=== PATIENT | female | born 2000 | race Caucasian/White ===

== ENCOUNTER 2021-08-22 20:42 | Inpatient (IN) ==
[2021-08-22] MEDS ORDERED: ACETAMINOPHEN 1,000 MG/100 ML VIAL IV STA (21:41)
[2021-08-22] MEDS ORDERED: ONDANSETRON INJ 2 MG/ML 2 ML VIAL IV STA ×2 (21:41→23:20)
[2021-08-22] MEDS ORDERED: SODIUM CHLORIDE 0.9% 1000ML 1,000 ML IV STA (21:41)
[2021-08-22 21:54] LABS: Appearance Urine Turbid (Clear); Bacteria Urine Automated 4+ (Negative); Bilirubin Urine Negative (Negative); Blood Urine Negative (Negative); Color Urine Yellow; Epithelial Cell Urine Auto >30 /lpf (0-5); Glucose Urine UA Negative (Negative); Ketones Urine 1+ (Negative); Leukocyte Esterase Urine 2+ (Negative); Nitrite Urine Positive (Negative); Protein Urine 1+ (Negative); RBC Urine Automated 0-4 /hpf (0-4); Specific Gravity Urine 1.023 (1.000-1.030); Urobilinogen Urine Negative (Negative); WBC Urine Automated >30 /hpf (0-5)
[2021-08-22 22:07] LABS: Pregnancy Test, Serum Negative (Negative)
[2021-08-22 22:15] LABS: Albumin Globulin Ratio 1.5 (0.9-2); Albumin Level 4.3 gm/dl (3.4-5.0); BUN Creatinine Ratio 13.2 (10-20); Bilirubin,Total 1.8 mg/dl (0.2-1.0); Calcium 9.2 mg/dl (8.5-10.1); Est GFR (Non-African American) 112.1 ml/min; Globulin 2.9 gm/dl (2.5-4.0); Potassium 3.4 mmol/L (3.5-5.1); Total Protein 7.2 gm/dl (6.0-8.3)
[2021-08-22] MEDS ORDERED: PIPERACILLIN/TAZOBACTAM 4.5 GM/120 ML BAG IV ONE (22:22)
--- NOTE | 2021-08-22 22:41 | Emergency Department Note ---
History of Present Illness General Chief complaint: Illness Stated complaint: 103 FEVER, VOMITING Time Seen by Provider: 08/22/21 21:34 History of Present Illness Maximum Pain Intensity: 7 This 21-year-old presents to the ER complaining of lower abdominal pain with urinary symptoms and fever Location: Lower abdomen Quality: Painful Severity: Moderate Duration: Past 2 days Timing: Started 2 days ago Context: Patient was concerned and came in Modifying factors: better with Tylenol; worse with activity Patient had a negative home COVID test. Patient denies chest pain, dyspnea, cough, congestion, diarrhea, flulike illness. Patient states she took a dose of Tylenol earlier today. No other medications. Home Medications Medication Instructions Recorded Confirmed Type No Known Home Medications 08/22/21 08/22/21 History Allergies Allergy/AdvReac Type Severity Reaction Status Date / Time No Known Allergies Allergy Unverified 08/22/21 21:49 Past Med/Surg History Medical History No acute medical problems Surgical History No pertinent past surgical history Social History Smoking Status: Never smoker Preferred Language: Gibralt[place] Feels Safe at Home: Yes Review of Systems A total of 10 systems reviewed and were otherwise negative Physical Exam Vital Signs Vital Signs - 24 hr 08/22/21 20:50 08/22/21 21:41 08/22/21 22:42 Temperature 36.6 C 36.4 C L Temperature Source Oral Oral Pulse Rate 91 H Pulse Rate [Apical] 61 Respiratory Rate 18 17 Blood Pressure 115/71 Blood Pressure [Right Arm] 96/64 L Blood Pressure Mean 85 Blood Pressure Mean [Right Arm] 74 Blood Pressure Position Sitting Pulse Oximetry 98 97 98 Oxygen Delivery Method Room Air Room Air Room Air Sepsis Recent Fever Within 48 Hours Yes Sepsis New/Unexplained Change in Mental Status N/A Sepsis Action Taken by Nursing No Action Required 08/22/21 23:57 08/23/21 01:00 Temperature Temperature Source Pulse Rate Pulse Rate [Apical] 62 73 Respiratory Rate 16 22 Blood Pressure Blood Pressure [Right Arm] 107/74 104/76 Blood Pressure Mean Blood Pressure Mean [Right Arm] 85 85 Blood Pressure Position Pulse Oximetry 97 98 Oxygen Delivery Method Room Air Room Air Sepsis Recent Fever Within 48 Hours Sepsis New/Unexplained Change in Mental Status Sepsis Action Taken by Nursing VITALS: Vitals are noted on the nurse's note and reviewed by myself. Vital signs reviewed. GENERAL: Pleasant female, in no acute distress, nondiaphoretic, well-developed well-nourished. SKIN: The skin was without rashes, erythema, edema, or bruising. There is no tenting of the skin. Capillary reflex less than 2 seconds. HEAD: Normocephalic atraumatic. EARS: External auditory canals clear, tympanic membranes pearly santoro without erythema or effusion bilaterally. EYES: Pupils equal round and reactive to light and accommodation. Conjunctivae without injection, sclerae without icterus. Extraocular movements intact. NOSE: Patent, turbinates without inflammation or discharge. MOUTH: Mucous membranes moist. Pharynx without erythema or exudate. Uvula midline. Airway patent. Tongue does not deviate. NECK: Supple without nuchal rigidity. No lymphadenopathy. No thyromegaly. Cervical spine is nontender. No JVD. HEART: Regular rate and rhythm LUNGS: Clear to auscultation bilaterally without wheezes, rales or rhonchi. No retractions or accessory muscle use. ABDOMEN: Positive bowel sounds x 4. Normal tympanic percussion. Soft, tender lower abdomen, without masses or organomegaly. Chaney sign negative. No guarding or rebound tenderness. No CVA tenderness MUSCULOSKELETAL: No muscle atrophy, erythema, or edema noted. NEURO: Patient was alert and oriented to person place and time. Normal s ensation to light and sharp touch. No focal neurological deficits. Course Administered Medications Sodium Chloride (Nss 1000ml) 1,000 mls @ 80 mls/hr IV .[id number] FOR[facility]LY [facility], 1928–1983 Stop: 09/22/21 00:14 Last Admin: 08/23/21 01:10 Dose: 80 mls/hr Documented by: [id number] Discontinued Medications Fentanyl Citrate (Fentanyl Citrate 100 Mcg/2 Ml Vial) 50 mcg IV NOW STA Stop: 08/22/21 23:21 Last Admin: 08/22/21 23:28 Dose: 50 mcg Documented by: [id number] Sodium Chloride (Nss 1000ml) 1,000 mls @ 999 mls/hr IV .[id number] STA Stop: 08/22/21 22:41 Last Infusion: 08/22/21 23:35 Dose: 0 mls/hr Documented by: [id number] Admin: 08/22/21 22:33 Dose: 999 mls/hr Documented by: [id number] Acetaminophen (Ofirmev) 1,000 mg in 100 mls @ 400 mls/hr IV NOW STA Stop: 08/22/21 21:55 Last Infusion: 08/22/21 22:49 Dose: 0 mls/hr Documented by: [id number] Admin: 08/22/21 22:33 Dose: 400 mls/hr Documented by: [id number] Piperacillin Sod/Tazobactam Sod (Zosyn) 4.5 gm in 120 mls @ 240 mls/hr IV NOW ONE Stop: 08/22/21 22:51 Last Infusion: 08/23/21 00:01 Dose: 0 mls/hr Documented by: [id number] Admin: 08/22/21 23:28 Dose: 240 mls/hr Documented by: [id number] Ioversol (Optiray 320 100ml) 93 ml IV ONCE ONE Stop: 08/22/21 23:11 Last Admin: 08/22/21 23:10 Dose: 93 ml Documented by: [id number] Ondansetron HCl (Ondansetron Inj 2 Mg/Ml 2 Ml Vial) 4 mg IV NOW STA Stop: 08/22/21 21:42 Last Admin: 08/22/21 22:33 Dose: 4 mg Documented by: [id number] Ondansetron HCl (Ondansetron Inj 2 Mg/Ml 2 Ml Vial) 4 mg IV NOW STA Stop: 08/22/21 23:21 Last Admin: 08/22/21 23:28 Dose: 4 mg Documented by: [id number] Medical Decision Making Medical Records Attestation: I reviewed the patient's medical records. Home Medications Current Medication List: was personally reviewed by me Laboratory Data Attestation: I reviewed the patient's lab results. Result diagrams: 08/22/21 21:40 08/22/21 21:40 Lab Results 08/22/21 08/22/21 08/22/21 Range/Units 21:40 21:40 21:40 WBC 23.40 H (4.8-10.8) K/uL RBC 4.30 (4.2-5.4) M/uL Hgb 13.1 (12.0-16.0) g/dL Hct 38.2 (37-47) % MCV 88.8 (80-100) fL MCH 30.5 (25-34) pg MCHC 34.3 (32-36) g/dL RDW Std Deviation 38.7 (36.4-46.3) fL RDW Coeff of Nereyda 12.1 (11.5-14.5) % Plt Count 185 (130-400) K/uL MPV 12.2 H (7.4-10.4) fL Immature Gran % (Auto) 0.3 % Neut % (Auto) 93.2 % Lymph % (Auto) 2.1 % [place] % (Auto) 4.3 % Eos % (Auto) 0.0 % Baso % (Auto) 0.1 % Neut # (Auto) 21.80 H (1.4-6.5) K/uL Lymph # (Auto) 0.50 L (1.2-3.4) K/uL [place] # (Auto) 1.00 H (0.11-0.59) K/uL Eos # (Auto) 0.00 (0-0.5) K/uL Baso # (Auto) 0.02 (0-0.2) K/uL Immature Gran # (Auto) 0.08 H (0.00-0.02) K/uL Sodium 134 L (136-145) mmol/L Potassium 3.4 L (3.5-5.1) mmol/L Chloride 100 (98-107) mmol/L Carbon Dioxide 24 (21-32) mmol/L Anion Gap 10 (3-11) BUN 10 (6-23) mg/dl Creatinine 0.76 (0.6-1.2) mg/dl Est Cr Clr Drug Dosing 108.0 ml/min Est GFR ( Amer) 130.0 ml/min Est GFR (Non-Af Amer) 112.1 ml/min BUN/Creatinine Ratio 13.2 (10-20) Glucose 135 H (70-99(Fasting)) mg/dl Lactate (0.4-2.0) mmol/L Calcium 9.2 (8.5-10.1) mg/dl Total Bilirubin 1.8 H (0.2-1.0) mg/dl AST 652 H (13-39) U/L ALT 457 H (7-52) U/L Alkaline Phosphatase 63 (34-104) U/L Total Protein 7.2 (6.0-8.3) gm/dl Albumin 4.3 (3.4-5.0) gm/dl Globulin 2.9 (2.5-4.0) gm/dl Albumin/Globulin Ratio 1.5 (0.9-2) HCG, Qual Negative (Negative) Urine Color Urine Appearance (Clear) Urine pH (4.5-7.5) Ur Specific [place] (1.000-1.030) Urine Protein (Negative) Urine Glucose (UA) (Negative) Urine Ketones (Negative) Urine Blood (Negative) Urine Nitrite (Negative) Urine Bilirubin (Negative) Urine Urobilinogen (Negative) Ur Leukocyte Esterase (Negative) Urine WBC (Auto) (0-5) /hpf Urine RBC (Auto) (0-4) /hpf U Hyaline Cast (Auto) (0-5) /lpf U Epithel Cells (Auto) (0-5) /lpf Urine Bacteria (Auto) (Negative) Acetaminophen (10-30) ug/ml SARS-CoV-2 (PCR) SARS-CoV-2, RNA, NAAT (NEGATIVE) 08/22/21 08/22/21 08/22/21 Range/Units 21:40 22:43 22:43 WBC (4.8-10.8) K/uL RBC (4.2-5.4) M/uL Hgb (12.0-16.0) g/dL Hct (37-47) % MCV (80-100) fL MCH (25-34) pg MCHC (32-36) g/dL RDW Std Deviation (36.4-46.3) fL RDW Coeff of Nereyda (11.5-14.5) % Plt Count (130-400) K/uL MPV (7.4-10.4) fL Immature Gran % (Auto) % Neut % (Auto) % Lymph % (Auto) % [place] % (Auto) % Eos % (Auto) % Baso % (Auto) % Neut # (Auto) (1.4-6.5) K/uL Lymph # (Auto) (1.2-3.4) K/uL [place] # (Auto) (0.11-0.59) K/uL Eos # (Auto) (0-0.5) K/uL Baso # (Auto) (0-0.2) K/uL Immature Gran # (Auto) (0.00-0.02) K/uL Sodium (136-145) mmol/L Potassium (3.5-5.1) mmol/L Chloride (98-107) mmol/L Carbon Dioxide (21-32) mmol/L Anion Gap (3-11) BUN (6-23) mg/dl Creatinine (0.6-1.2) mg/dl Est Cr Clr Drug Dosing ml/min Est GFR ( Amer) ml/min Est GFR (Non-Af Amer) ml/min BUN/Creatinine Ratio (10-20) Glucose (70-99(Fasting)) mg/dl Lactate 1.7 (0.4-2.0) mmol/L Calcium (8.5-10.1) mg/dl Total Bilirubin (0.2-1.0) mg/dl AST (13-39) U/L ALT (7-52) U/L Alkaline Phosphatase (34-104) U/L Total Protein (6.0-8.3) gm/dl Albumin (3.4-5.0) gm/dl Globulin (2.5-4.0) gm/dl Albumin/Globulin Ratio (0.9-2) HCG, Qual (Negative) Urine Color Yellow Urine Appearance Turbid A (Clear) Urine pH 5.0 (4.5-7.5) Ur Specific [place] 1.023 (1.000-1.030) Urine Protein 1+ H (Negative) Urine Glucose (UA) Negative (Negative) Urine Ketones 1+ H (Negative) Urine Blood Negative (Negative) Urine Nitrite Positive A (Negative) Urine Bilirubin Negative (Negative) Urine Urobilinogen Negative (Negative) Ur Leukocyte Esterase 2+ H (Negative) Urine WBC (Auto) >30 H (0-5) /hpf Urine RBC (Auto) 0-4 (0-4) /hpf U Hyaline Cast (Auto) 1-5 (0-5) /lpf U Epithel Cells (Auto) >30 H (0-5) /lpf Urine Bacteria (Auto) 4+ H (Negative) Acetaminophen (10-30) ug/ml SARS-CoV-2 (PCR) Cancelled SARS-CoV-2, RNA, NAAT (NEGATIVE) 08/22/21 08/23/21 Range/Units 22:43 01:10 WBC (4.8-10.8) K/uL RBC (4.2-5.4) M/uL Hgb (12.0-16.0) g/dL Hct (37-47) % MCV (80-100) fL MCH (25-34) pg MCHC (32-36) g/dL RDW Std Deviation (36.4-46.3) fL RDW Coeff of Nereyda (11.5-14.5) % Plt Count (130-400) K/uL MPV (7.4-10.4) fL Immature Gran % (Auto) % Neut % (Auto) % Lymph % (Auto) % [place] % (Auto) % Eos % (Auto) % Baso % (Auto) % Neut # (Auto) (1.4-6.5) K/uL Lymph # (Auto) (1.2-3.4) K/uL [place] # (Auto) (0.11-0.59) K/uL Eos # (Auto) (0-0.5) K/uL Baso # (Auto) (0-0.2) K/uL Immature Gran # (Auto) (0.00-0.02) K/uL Sodium (136-145) mmol/L Potassium (3.5-5.1) mmol/L Chloride (98-107) mmol/L Carbon Dioxide (21-32) mmol/L Anion Gap (3-11) BUN (6-23) mg/dl Creatinine (0.6-1.2) mg/dl Est Cr Clr Drug Dosing ml/min Est GFR ( Amer) ml/min Est GFR (Non-Af Amer) ml/min BUN/Creatinine Ratio (10-20) Glucose (70-99(Fasting)) mg/dl Lactate (0.4-2.0) mmol/L Calcium (8.5-10.1) mg/dl Total Bilirubin (0.2-1.0) mg/dl AST (13-39) U/L ALT (7-52) U/L Alkaline Phosphatase (34-104) U/L Total Protein (6.0-8.3) gm/dl Albumin (3.4-5.0) gm/dl Globulin (2.5-4.0) gm/dl Albumin/Globulin Ratio (0.9-2) HCG, Qual (Negative) Urine Color Urine Appearance (Clear) Urine pH (4.5-7.5) Ur Specific [place] (1.000-1.030) Urine Protein (Negative) Urine Glucose (UA) (Negative) Urine Ketones (Negative) Urine Blood (Negative) Urine Nitrite (Negative) Urine Bilirubin (Negative) Urine Urobilinogen (Negative) Ur Leukocyte Esterase (Negative) Urine WBC (Auto) (0-5) /hpf Urine RBC (Auto) (0-4) /hpf U Hyaline Cast (Auto) (0-5) /lpf U Epithel Cells (Auto) (0-5) /lpf Urine Bacteria (Auto) (Negative) Acetaminophen 41 H (10-30) ug/ml SARS-CoV-2 (PCR) SARS-CoV-2, RNA, NAAT NEGATIVE (NEGATIVE) Imaging Data Attestation: I personally reviewed and interpreted this imaging study as follows: MDM Narrative Prior records/ancillary studies reviewed. Triage Nursing notes reviewed. Additional history obtained from nursing. The patient's history was concerning for fever. Differential diagnosis: Etiologies such as viral syndrome, otitis, pharyngitis, pneumonia, influenza, meningitis, urinary tract infection, sepsis, bacteremia, as well as others were entertained. Physical examination: As above ER treatment provided: An order was placed for continuous cardiac monitoring. The monitor shows a rate of 60-1 50 with a sinus rhythm. IV fluids, Zosyn, NAC . On reassessment the patient felt better. Diagnostics interpreted by me: The labs revealed leukocytosis, elevated LFTs Urine concerning for infection and sent for culture. No prior urine culture for review Tylenol level sent with elevated LFTs and came back minimally elevated. NAC was initiated Imaging studies: Preliminary Findings Only See Final Report For Complete Findings CT ABDOMEN & PELVIS With Contrast: Impression: Left-sided pyelonephritis. No acute appendicitis. Cannot exclude mild right-sided colitis versus artifact. No prior exam for comparison. Clear lung bases. Normal heart. Mild periportal edema. Normal gallbladder. Normal common bile duct with no dilatation. Normal spleen and pancreas. Normal bilateral adrenal gland. Normal right kidney. Multiple areas of hypoenhancement to the left renal cortex with the hazy appearance consistent with left pyelonephritis. Normal aorta and retroperitoneum. Unremarkable stomach and small bowel. No signs of bowel obstruction. Mild thickening of the wall of the right: With mild enhancement, cannot exclude mild right-sided colitis. The appendix is normal. The uterus is retroflexed. There is mild free fluid in the cul-de-sac, nonspecific. Bony structures within normal limits. Radiologist: Su Yadav MD Consultation: A consultation was placed with the hospitalist . The case was discussed and diagnostics were reviewed. The patient was evaluated in the ER for further treatment. This appears to be consistent with pyelonephritis with elevated LFTs with concerns for possible accidental Tylenol overdose. Patient is given antibiotics and NAC. Patient did not inform me she took extra Tylenol. She did inform the admitting doctor that she has been taking Tylenol every 4 hours. She told me she took a dose earlier today. Patient will be admitted. She does admit to binge drinking on the weekends. No other drug use. By the evaluation outlined above emergent etiologies such as otitis, pharyngitis, pneumonia, meningitis, as well as others were deemed relatively unlikely. The pt informed about the findings as listed above. All questions were answered and pleased with the treatment. The chart was completed utilizing [employer] Speech voice recognition software. Grammatical errors, random word insertions, pronoun errors, and incomplete sentences are an occassional consequence of this system due to software limitations, ambient noise, and hardware issues. Any formal questions or concerns about the content, text, or information contained within the body of this dictation should be directly addressed to the physician funeral home assistant for clarification. Impression & Plan Pyelonephritis, Elevated LFTs Discharge Plan Visit Data Chief Complaint: Illness Stated Complaint: 103 FEVER, VOMITING ED Provider: Rasheed Agustin ED Midlevel Provider: Katherine Rowley Discharge Problem: Pyelonephritis, Elevated LFTs Patient Disposition: Admitted As Inpatient Condition: Fair Forms Stand Alone Forms: My [employer] Prescriptions Prescriptions: No Action No Known Home Medications RF: 0 Referrals Referrals: PCP,NO [Primary Care Provider] -
[2021-08-22 22:46] LABS: Hematocrit (blood only) 38.2 % (37-47); Hemoglobin 13.1 g/dL (12.0-16.0); Mean Corpuscular Hemoglobin 30.5 pg (25-34); Mean Corpuscular Hgb Conc 34.3 g/dL (32-36); Mean Corpuscular Volume 88.8 fL (80-100); Mean Platelet Volume 12.2 fL (7.4-10.4); Platelet Count 185 K/uL (130-400); RDW Coefficient of Variation 12.1 % (11.5-14.5); RDW Standard Deviation 38.7 fL (36.4-46.3)
[2021-08-22 23:00] LABS: Basophils # (auto) 0.02 K/uL (0-0.2); Basophils % (auto) 0.1 %; Immature Granulocytes # (auto) 0.08 K/uL (0.00-0.02); Immature Granulocytes % (auto) 0.3 %; Lymphocytes % (auto) 2.1 %; Monocytes % (auto) 4.3 %; Neutrophils % (auto) 93.2 %
[2021-08-22] MEDS ORDERED: OPTIRAY 320 100ml IV ONE (23:10)
[2021-08-22] MEDS ORDERED: fentaNYL citrate 100 MCG/2 ML VIAL IV STA (23:20)
[2021-08-23] MEDS ORDERED: SODIUM CHLORIDE 0.9% 1000ML 1,000 ML IV SCH (00:15)
[2021-08-23] MEDS ORDERED: METOCLOPRAMIDE HCL INJ 5 MG/ML 2 ML VIAL IV ONE (02:55)
[2021-08-23] MEDS ORDERED: AcetylCYSTEINE IV 21 HR REGIMEN (>40KG) IV STA (02:59)
[2021-08-23] MEDS ORDERED: ACETYLCYSTEINE IV ONE ×4 (03:00→09:30)
[2021-08-23] MEDS ORDERED: DEXTROSE 5% IV ONE ×4 (03:00→09:30)
--- NOTE | 2021-08-23 03:51 | History & Physical Report ---
Date of Service August 23, 2021 Assessment & Plan (1) Pyelonephritis: Plan: 21 y/o F without active medical issues. She developed L flank pain, nausea, fever and urinary frequency earlier in the day. She was unable to control her pain with Tylenol or ibuprofen and eventually presented to the ER. Initial labs were notable for mild hyponatremia, hypokalemia, a strongly + UA, leukocytosis and significant transaminitis with an ALT of 457, AST 652, Tbili 1.8. On furth er questioning, she stated that she did take 2 Tylenol approximately 4 times throughout the day. It is not clear if they were 350 or 500mg. She also received a gram of Ofirmev in the ER prior to her labs returning. Her Tylenol level returned at 41. A CT abdomen confirmed pyelonephritis. 1) Pyelonephritis - Ceftriaxone, IVF, pain control, antiemetics. 2) Transaminitis - presumed due to accidental acetaminophen OD. We calculate that she took a maximum of 4g at home and then received Ofirmev 1g in the ER. Although she does drink alcohol on occasion, she denies excess intake. She reports drinking 2 margaritas the prior evening. She is placed on Acetadote. An INR is pending. If her second LFTs increase significantly, we should consider transfer to a tertiary center. 3) Hyponatremia, hypokalemia - NS with K provided. Trend BMP. Full code - ambulatory Total time for this admit including review of labs, meds, imaging, records - discussion with pt and ER attending - 50 min (2) Elevated LFTs: (3) Acetaminophen overdose: History of Present Illness Chief Complaint: Flank pain, nausea, fever Primary Care Provider: NO PCP 21 y/o F without active medical issues. She developed L flank pain, nausea, fever and urinary frequency earlier in the day. She was unable to control her pain with Tylenol or ibuprofen and eventually presented to the ER. Initial labs were notable for mild hyponatremia, hypokalemia, a strongly + UA, leukocytosis and significant transaminitis with an ALT of 457, AST 652, Tbili 1.8. On further questioning, she stated that she did take 2 Tylenol approximately 4 times throughout the day. It is not clear if they were 350 or 500mg. She also received a gram of Ofirmev in the ER prior to her labs returning. Her Tylenol level returned at 41. A CT abdomen confirmed pyelonephritis. PMH: Denies active medical issues Surgical: Limited to ankle surgery as a child Social: Does not smoke. Drinks socially. Family: Parents alive and well Allergies Allergy/AdvReac Type Severity Reaction Status Date / Time No Known Allergies Allergy Unverified 08/22/21 21:49 Home Medications Medication Instructions Recorded Confirmed Type No Known Home Medications 08/22/21 08/22/21 History Past Med/Surg History Medical History No acute medical problems Surgical History No pertinent past surgical history Social History Smoking Status: Never smoker Preferred Language: Burkin[place] Feels Safe at Home: Yes Review of Systems Review of Systems: Gen: Denies fevers, night sweats, rigors, fatigue, malaise, weight loss/gain ENT: Denies congestion, throat pain, hearing loss Eyes: Denies acute visual changes CV: Denies CP, palpitations Pulmonary: Denies SOB, cough, wheezing GI: + nausea and poor intake : L flank pain - severe Neuro: Denies acute or unilateral weakness, acute gait impairment, headache or acute visual changes Musculoskeletal: Denies joint pain, inflammation Endocrine: Denies polydipsia, polyuria Skin: Denies acute rashes or ulcers Physical Exam Physical Exam: General: AAO x 3, no distress ENT: No erythema or exudates, no thrush Eyes: JOSHUA, EOMI Head and neck: Normocephalic, atraumatic, No JVD, neck is supple. Chest/heart: Nontender, S1,2, RRR, no murmurs, no gallops Lungs: CTAB, no wheezing or crackles Abdomen: Nontender, nondistended, BS+. : + L flank tenderness Neuro: AAO x 3, speech is clear, no unilateral weakness or loss of sensation, coordination intact Musculoskeletal: No joint inflammation, muscle tenderness, FROM Skin: No acute rashes or ulcers Extremities: No clubbing, cyanosis, edema Results & Data Results & Data ([facility]) Vital Signs (Past 12 Hours) Vital Signs Temp Pulse Pulse Resp BP BP Pulse Ox 08/23/21 03:35 95 H 18 103/71 98 08/23/21 01:00 73 22 104/76 98 08/22/21 23:57 62 16 107/74 97 08/22/21 22:42 97.5 F L 61 17 96/64 L 98 08/22/21 21:41 97 08/22/21 20:50 97.9 F 91 H 18 115/71 98 Code Status & VTE Plan VTE Prophylaxis Plan VTE Prophylaxis will be ordered: No PG Care Time/CCT Total # of Minutes Spent Total Time Spent with Patient: Total time spent is greater than 50% in coordination of care (as documented) at patient's floor/unit and/or counseling patient: Coding Level of Care Code 20771 Initial Inpt Care Lvl 3 Diagnoses Pyelonephritis N12 Elevated LFTs R79.89 Acetaminophen overdose T39.1X1A
[2021-08-23 04:43] LABS: INR 1.6 (0.9-1.1); Prothrombin Time 16.7 Seconds (9.0-12.0)
[2021-08-23 04:56] LABS: Anion Gap 8 (3-11); BUN Creatinine Ratio 16.3 (10-20); Blood Urea Nitrogen 8 mg/dl (6-23); Calcium 9.3 mg/dl (8.5-10.1); Carbon Dioxide 24 mmol/L (21-32); Chloride 104 mmol/L (98-107); Creatinine Clr Calc Pharmacy 169.4 ml/min; Est GFR (African American) > 150.0 ml/min; Est GFR (Non-African American) 139.3 ml/min; Glucose 97 mg/dl (70-99(Fasting)); Potassium 3.9 mmol/L (3.5-5.1); Sodium 136 mmol/L (136-145)
[2021-08-23 04:57] LABS: Bilirubin Direct 0.6 mg/dl (0-0.2); Bilirubin,Total 2.4 mg/dl (0.2-1.0); Magnesium 1.7 mg/dl (1.7-2.4); Total Protein 6.9 gm/dl (6.0-8.3)
[2021-08-23] MEDS: cefTRIAXone SODIUM 1,000 MG in DEXTROSE 5% 50 ML IV SCH (05:38)
[2021-08-23] MEDS: D5NSS + 20MEQ KCL 20 MEQ/1,000 ML BAG IV SCH ×2 (05:39→12:02)
[2021-08-23] MEDS: PROMETHAZINE HCL 25 MG TAB PO PRN ×2 (06:10→11:59)
--- NOTE | 2021-08-23 08:49 | CT Scan Report ---
CT OF THE ABDOMEN AND PELVIS WITH CONTRAST CLINICAL HISTORY: Right lower quadrant pain, fever, UA sx COMPARISON STUDY: None. TECHNIQUE: Following IV administration of 93 mL of Optiray, axial images of the abdomen and pelvis we re obtained from the lung bases to the proximal femurs. Images were reviewed in the axial, sagittal, and coronal planes. IV contrast was administered without complication. Automated exposure control wa s utilized for the study. A dose lowering technique was utilized adhering to the principles of ALARA . CT DOSE: 287.55 mGy.cm FINDINGS: Lung bases are unremarkable. No pneumatosis, free air or portal venous gas is present. Ther e is periportal edema. No biliary or pancreatic ductal dilatation is present. There are no hepatic le sions. Spleen, adrenal glands, right kidney and pancreas are normal. There is no hydronephrosis. Ther e are multiple hypoenhancing foci within the left kidney with ill-defined margins. No well-defined fl uid collection is identified to suggest an abscess. No urinary calculi are present. Small amount of f luid within the pelvis is noted. Visualized portions of the appendix are normal. There is mild wall t hickening of the ascending colon. This is probably due to underdistention. Major vasculature is paten t. IMPRESSION: 1. Multiple hypoenhancing foci within the left kidney consistent with acute pyelonephritis. No renal abscess. 2. Wall thickening of the ascending colon. This is likely due to underdistention. A nonspecific colit is could appear similar but is considered less likely. 3. Small amount of fluid within the pelvis. ACT 112: Negative or not required by law. Electronically signed by: Russell Montero M.D. 08/23/2021 8:47 AM
--- NOTE | 2021-08-23 09:40 | History & Physical Bridge Note ---
Date of Service August 23, 2021 History & Physical Bridge Note I have examined the patient, reviewed the History & Physical and in the interval since the performance of the History & Physical I have noted the following changes of clinical significance: no changes noted Patient seen in room 356-2, states feeling much better than when she came in. Less frequency, less discomfort. Some nausea + vomiting x 1 this morning, improvement in nausea w/ antiemetics and no further vomiting Patient wasn't keen on staying overnight, but agreeable to monitor LFTs Rec avoiding alcohol/excessive Tylenol use Repeat dosing of NAC ordered, repeat labs pending for noon but repeat overnight without significant worsening and no need for tx at this time. No increased bleeding. Electrolyte replacement for K/Na, normal on repeat BCx, urine cx pending If continued improvement/cultures return, patient would ideally like d/c early in morning. Consider PO antiemetics at d/c as discussed with patient
[2021-08-23] MEDS: IBUPROFEN 600 MG TAB PO PRN ×2 (12:01→20:01)
[2021-08-23] MEDS ORDERED: PROMETHAZINE HCL 12.5 MG in SODIUM CHLORIDE 0.9% 50 ML IV PRN (12:07)
[2021-08-23 12:34] LABS: INR 1.9 (0.9-1.1); Prothrombin Time 19.3 Seconds (9.0-12.0)
[2021-08-23 12:35] LABS: Hematocrit (blood only) 38.6 % (37-47); Hemoglobin 13.1 g/dL (12.0-16.0); Mean Corpuscular Hgb Conc 33.9 g/dL (32-36); Mean Corpuscular Volume 91.5 fL (80-100); Mean Platelet Volume 12.2 fL (7.4-10.4); Platelet Count 185 K/uL (130-400); RDW Coefficient of Variation 12.1 % (11.5-14.5); Red Blood Count 4.22 M/uL (4.2-5.4); White Blood Count 24.39 K/uL (4.8-10.8)
[2021-08-23 12:46] LABS: BUN Creatinine Ratio 9.3 (10-20); Calcium 8.9 mg/dl (8.5-10.1); Creatinine Clr Calc Pharmacy 110.7 ml/min; Est GFR (African American) 132.1 ml/min; Est GFR (Non-African American) 113.9 ml/min; Potassium 3.8 mmol/L (3.5-5.1)
[2021-08-23 12:47] LABS: Albumin Globulin Ratio 1.3 (0.9-2); Albumin Level 3.8 gm/dl (3.4-5.0); Bilirubin,Total 1.9 mg/dl (0.2-1.0); Globulin 2.9 gm/dl (2.5-4.0); Total Protein 6.7 gm/dl (6.0-8.3)
[2021-08-23 13:45] LABS: Basophils # (auto) 0.03 K/uL (0-0.2); Basophils % (auto) 0.1 %; Eosinophils # (auto) 0.01 K/uL (0-0.5); Immature Granulocytes # (auto) 0.08 K/uL (0.00-0.02); Immature Granulocytes % (auto) 0.3 %; Lymphocytes # (auto) 1.33 K/uL (1.2-3.4); Lymphocytes % (auto) 5.5 %; Monocytes # (auto) 1.07 K/uL (0.11-0.59); Monocytes % (auto) 4.4 %; Neutrophils # (auto) 21.87 K/uL (1.4-6.5); Neutrophils % (auto) 89.7 %
[2021-08-24] MEDS: cefTRIAXone SODIUM 1,000 MG in DEXTROSE 5% 50 ML IV SCH (05:15)
[2021-08-24 10:59] LABS: Hematocrit (blood only) 35.3 % (37-47); Mean Corpuscular Hemoglobin 30.2 pg (25-34); Mean Corpuscular Volume 88.7 fL (80-100); Mean Platelet Volume 12.1 fL (7.4-10.4); Platelet Count 185 K/uL (130-400); RDW Coefficient of Variation 12.2 % (11.5-14.5); RDW Standard Deviation 39.7 fL (36.4-46.3); Red Blood Count 3.98 M/uL (4.2-5.4)
[2021-08-24 11:03] LABS: INR 1.5 (0.9-1.1)
[2021-08-24 11:26] LABS: Albumin Globulin Ratio 1.2 (0.9-2); Albumin Level 2.9 gm/dl (3.4-5.0); BUN Creatinine Ratio 11.9 (10-20); Bilirubin,Total 0.9 mg/dl (0.2-1.0); Calcium 8.6 mg/dl (8.5-10.1); Creatinine Clr Calc Pharmacy 123.9 ml/min; Est GFR (African American) 145.6 ml/min; Est GFR (Non-African American) 125.7 ml/min; Globulin 2.4 gm/dl (2.5-4.0); Potassium 3.5 mmol/L (3.5-5.1); Total Protein 5.3 gm/dl (6.0-8.3)
[2021-08-24] MEDS ORDERED: AMOXICILLIN/CLAVULANATE 875 MG TAB PO ONE (12:25)
--- NOTE | 2021-08-24 16:02 | Discharge Summary ---
Date of Service August 24, 2021 Admission HPI Per Admitting Provider 21 y/o F without active medical issues. She developed L flank pain, nausea, fever and urinary frequency earlier in the day. She was unable to control her pain with Tylenol or ibuprofen and eventually presented to the ER. Initial labs were notable for mild hyponatremia, hypokalemia, a strongly + UA, leukocytosis and significant transaminitis with an ALT of 457, AST 652, Tbili 1.8. On further questioning, she stated that she did take 2 Tylenol approximately 4 times throughout the day. It is not clear if they were 350 or 500mg. She also received a gram of Ofirmev in the ER prior to her labs returning. Her Tylenol level returned at 41. A CT abdomen confirmed pyelonephritis. PMH: Denies active medical issues Surgical: Limited to ankle surgery as a child Social: Does not smoke. Drinks socially. Family: Parents alive and well Principal Diagnosis pyelonephritis acute medication induced hepatitis, Tylenol toxicity Discharge Exam The patient appeared stable Vital signs as documented. Lungs are clear to auscultation and appear unlabored Cardiac exam, Rhythm is regular.. No murmurs, rubs or gallops. Abdominal exam reveals normal bowel sounds, soft non tender, no masses, no organomegaly Extremities are nonedematous and both pedal pulses are normal. Neurologic exam is alert and oriented, no focal loss of strength or sensation Skin is without bruises or rashes Psychologically is without concerns for anxiety or depression. Discharge Data Allergies Allergy/AdvReac Type Severity Reaction Status Date / Time No Known Allergies Allergy Unverified 08/22/21 21:49 Consultations 08/23/21 01:03 ED Decision to Admit Stat Ordered Studies 08/22/21 21:41 CT abd pelvis IV con only Stat Hospital Course (1) Pyelonephritis: 21 y/o F without active medical issues. She developed L flank pain, nausea, fever and urinary frequency earlier in the day. She was unable to control her pain with Tylenol or ibuprofen and eventually presented to the ER. Initial labs were notable for mild hyponatremia, hypokalemia, a strongly + UA, leukocytosis and significant transaminitis with an ALT of 457, AST 652, Tbili 1.8. On further questioning, she stated that she did take 2 Tylenol approximately 4 times throughout the day. It is not clear if they were 350 or 500mg. She also received a gram of Ofirmev in the ER prior to her labs returning. Her Tylenol level returned at 41. A CT abdomen confirmed pyelonephritis. 1) Pyelonephritis - Ceftriaxone, will be home on Ceftin po for 10 day total 2) Transaminitis - presumed due to accidental acetaminophen OD. We calculate that she took a maximum of 4g at home and then received Ofirmev 1g in the ER. Although she does drink alcohol on occasion, she denies excess intake. She reports drinking 2 margaritas the prior evening. She completed Acetadote. An INR was elevated but improved, will be d/c with strict instructions not to drink or use tylenol 3) Hyponatremia, hypokalemia -resolved (2) Elevated LFTs: (3) Acetaminophen overdose: Total Time Total Time Spent Total Time Spent (In Minutes): Discharge 30 including coordination of antibiotics for outpatient Discharge Plan Discharge Items Patient Disposition: Home - Self-Care Reason For Visit: PYELONEPHRITIS Discharge Diagnosis: kidney infection liver irritation from tylenol use, given tylenol antidote Condition on Discharge: Fair Activity: Resume your previous activity Non-emergency contact: Primary Care Provider Call non-emergency contact if: your symptoms worsen Follow-up/Referrals: [place] [Non-Staff] - PCP,NO [Primary Care Provider] - Diet: Regular Addtl Attending Provider Instructions: please, absolutely no alcohol or Tylenol until your primary care at [facility] re checks your blood work You may use ibuprofen , Aleve or naproxen for pain, choose one not all, excess of these medicines could cause ulcers or hurt your kidney. If you find you have increaseing pain or fever please return to the hospital Pending Studies at Discharge: Yes (final urine culture results) Stand-Alone Forms: My [facility] [employer], Smoking Cessation Medications and DC Order Prescriptions: New cefuroxime axetil 250 mg tablet 250 mg PO BID 10 Days Qty: 20 RF: 0 Discharge Orders: Discharge Order (Routine); Ordered 08/24/21 Ordered By: Matthias Morales/Other Patient Handouts: ED Pyelonephritis, Female (Adult) Admission Data Admit Date/Time: 08/23/21 02:55 Attending Provider: Matthias Drew Admit Provider: Hossein Davis Primary Care Provider: PCP,NO Other Providers: Hossein Davis Other Interventions: Discharge Summary Assessment (RN) Last Done: 08/24/21 13:12 Coding Level of Care Code D/C DAY MANAGEMENT >30 MINS Diagnoses Pyelonephritis N12 Elevated LFTs R79.89 Acetaminophen overdose T39.1X1A
[2021-08-24] MEDS ORDERED: cefUROXime axetil 250 MG TABLET PO SCH ×2 (21:00)
== END 2021-08-24 13:26 | disposition home or self-care (01) | DRG 690 ==
LOC: ED 20:42 → SUATTDRO 08-23 02:55 → 3W 08-23 02:55